=== PATIENT | female | born 1990 | race Caucasian/White ===

== ENCOUNTER 2018-09-21 02:58 | Emergency (ER) | payer SELFPAY ==
[~2018-09-21] VITALS: Ht 175.3 cm; Wt 111.1 kg
--- NOTE | 2018-09-21 03:04 | NUR ---
PT BIBRA FROM HOME C/P "HEART PALPITATIONS" TWICE IN THE LAST 2 HOURS THAT LASTED APPROX. 2 MIN EACH. PT DENIES CP/SOB AT THIS TIME. PT ON MONITOR IN BED 5. WILL CONTINUE TO MONITOR.
--- NOTE | 2018-09-21 03:05 | NUR ---
TECH AT BEDSIDE FOR EKG
[2018-09-21 03:06] VITALS: BP 134/94
== END 2018-09-21 03:55 | disposition home or self-care (01) ==
LOC: ER 03:00
DX: R00.2 Palpitations (principal); I10 Essential (primary) hypertension; Z60.2 Problems related to living alone
CPT/HCPCS: A4606; Z7610

== ENCOUNTER 2019-06-03 00:05 | Emergency (ER) | payer SELFPAY ==
[~2019-06-03] VITALS: Ht 172.7 cm; Wt 113.9 kg
[2019-06-03 00:12] VITALS: BP 143/74
--- NOTE | 2019-06-03 02:22 | NUR ---
CALLED FOR PT IN WAITING ROOM. NO RESPONSE
--- NOTE | 2019-06-03 02:55 | NUR ---
CALLED FOR PT IN WAITING ROOM. NO RESPONSE
--- NOTE | 2019-06-03 03:05 | NUR ---
CALLED FOR PT IN WAITING ROOM. NO RESPONSE
== END 2019-06-03 03:07 | disposition left against medical advice (07) ==
LOC: ER 00:07
DX: R07.89 Other chest pain (principal); I10 Essential (primary) hypertension; Z60.2 Problems related to living alone; Z53.21 Procedure and treatment not carried out due to patient leaving prior to being seen by health care provider

== ENCOUNTER 2019-06-09 11:56 | Emergency (ER) | payer SELFPAY ==
[~2019-06-09] VITALS: Ht 172.7 cm; Wt 113.4 kg
[2019-06-09 12:25] LABS: BASOPHILS # (AUTO) 0.1 /CMM (0.0-0.2); BASOPHILS % (AUTO) 0.9 % (0.0-2.0); EOSINOPHILS % (AUTO) 2.4 % (0.0-6.0); HEMATOCRIT 42 % (33-45); HEMOGLOBIN 14.2 g/dL (11.5-14.8); LYMPHOCYTES # (AUTO) 2.5 /CMM (0.8-4.8); MEAN CORPUSCULAR HGB CONC 34 g/dl (31.0-36.0); MEAN CORPUSCULAR VOLUME 81 fL (82-100); MONOCYTES # (AUTO) 0.2 /CMM (0.1-1.30); MONOCYTES % (AUTO) 2.6 % (2.0-12.0); NEUTROPHILS # (AUTO) 4.4 /CMM (1.8-8.9); NEUTROPHILS % (AUTO) 60.1 % (43.0-81.0); PLATELET COUNT (AUTO) 243 /CMM (150-450); RED BLOOD CELL COUNT(AUTO) 5.12 MIL/uL (4.0-5.2); WHITE BLOOD COUNT (AUTO) 7.4 K/uL (4.3-11.0)
[2019-06-09 12:31] LABS: CALCIUM, SERUM 9.5 mg/dL (8.5-10.1); CARBON DIOXIDE 25 mmol/L (21-32); CHLORIDE 105 mmol/L (98-107); CREATININE 0.6 mg/dL (0.6-1.3); GLUCOSE 128 mg/dL (74-106); POTASSIUM 3.7 mmol/L (3.5-5.1); SODIUM SERUM 141 mmol/L (136-145); UREA NITROGEN, BLOOD 8 mg/dL (7-18)
--- NOTE | 2019-06-09 14:14 | NUR ---
Patient discharged to home in stable condition. Written and verbal after care instructions given. Patient verbalizes understanding of instruction.
[2019-06-09 14:15] VITALS: BP 139/75
== END 2019-06-09 14:16 | disposition home or self-care (01) ==
LOC: ER 11:58
DX: R07.89 Other chest pain (principal); I10 Essential (primary) hypertension; Z60.2 Problems related to living alone
CPT/HCPCS: 36415; 71045-TC; 80048-TC; 84484-TC; 85025-TC

== ENCOUNTER 2019-08-23 18:49 | Emergency (ER) | payer SELFPAY ==
[~2019-08-23] VITALS: Ht 172.7 cm; Wt 102.1 kg
--- NOTE | 2019-08-23 19:09 | NUR ---
Pt VI RA 89 from Home "Palpitation/dizzy/light headedness on/off since last night was seen in [facility] cleared but symptoms persist. " Pt aaox4, vss, breathing even and unlabored on room air w/ nad. Pt connected to the monitor.
[2019-08-23 19:39] LABS: BASOPHILS # (AUTO) 0.1 /CMM (0.0-0.2); BASOPHILS % (AUTO) 0.6 % (0.0-2.0); EOSINOPHILS % (AUTO) 1.3 % (0.0-6.0); HEMATOCRIT 45 % (33-45); LYMPHOCYTES # (AUTO) 2.4 /CMM (0.8-4.8); LYMPHOCYTES % (AUTO) 27.3 % (20.0-44.0); MEAN CORPUSCULAR HGB CONC 33 g/dl (31.0-36.0); MEAN CORPUSCULAR VOLUME 83 fL (82-100); MONOCYTES # (AUTO) 0.5 /CMM (0.1-1.30); MONOCYTES % (AUTO) 5.6 % (2.0-12.0); NEUTROPHILS # (AUTO) 5.8 /CMM (1.8-8.9); NEUTROPHILS % (AUTO) 65.2 % (43.0-81.0); PLATELET COUNT (AUTO) 256 /CMM (150-450); RED BLOOD CELL COUNT(AUTO) 5.42 MIL/uL (4.0-5.2); WHITE BLOOD COUNT (AUTO) 8.9 K/uL (4.3-11.0)
[2019-08-23 19:43] LABS: CARBON DIOXIDE 23 mmol/L (21-32); CHLORIDE 106 mmol/L (98-107); CREATININE 0.6 mg/dL (0.6-1.3); GLUCOSE 116 mg/dL (74-106); POTASSIUM 3.5 mmol/L (3.5-5.1); SODIUM SERUM 142 mmol/L (136-145); UREA NITROGEN, BLOOD 10 mg/dL (7-18)
--- NOTE | 2019-08-23 20:35 | NUR ---
PT AMBULATED TO THE BATHROOM WITH A SLOW STEADY GAIT.
[2019-08-23 22:17] VITALS: BP 123/76
== END 2019-08-23 21:43 | disposition home or self-care (01) ==
LOC: ER 18:50
DX: F41.9 Anxiety disorder, unspecified (principal); R00.2 Palpitations; I10 Essential (primary) hypertension; K21.9 Gastro-esophageal reflux disease without esophagitis; Z90.89 Acquired absence of other organs; Z60.2 Problems related to living alone
CPT/HCPCS: 36415; 80048-TC; 84484-TC; 85025-TC

== ENCOUNTER 2019-09-21 15:34 | Emergency (ER) | payer BC ==
[~2019-09-21] VITALS: Ht 175.3 cm; Wt 112.9 kg
[2019-09-21 15:41] VITALS: BP 147/89
--- NOTE | 2019-09-21 16:34 | NUR ---
Patient discharged to home in stable condition. Written and verbal after care instructions given. Patient verbalizes understanding of instruction.
== END 2019-09-21 16:35 | disposition home or self-care (01) ==
LOC: ER 15:36
DX: F41.9 Anxiety disorder, unspecified (principal); I10 Essential (primary) hypertension; K21.9 Gastro-esophageal reflux disease without esophagitis; Z90.89 Acquired absence of other organs; Z60.2 Problems related to living alone

== ENCOUNTER 2019-10-14 17:58 | Emergency (ER) | payer BC ==
[~2019-10-14] VITALS: Ht 172.7 cm; Wt 111.1 kg
[2019-10-14 18:24] VITALS: BP 143/81
[2019-10-14] MEDS ORDERED: LET SOLN TOPICAL 8 ML UDC TP ONE ×2 (18:57→19:00)
--- NOTE | 2019-10-14 21:16 | NUR ---
PT REC'D BANDAGES TO ELBOW AND THUMB.
== END 2019-10-14 21:17 | disposition home or self-care (01) ==
LOC: ER 17:59
DX: S60.351A Superficial foreign body of right thumb, initial encounter (principal); S50.352A Superficial foreign body of left elbow, initial encounter; I10 Essential (primary) hypertension; F41.9 Anxiety disorder, unspecified; K21.9 Gastro-esophageal reflux disease without esophagitis; Z60.2 Problems related to living alone; Z90.89 Acquired absence of other organs; W45.8XXA Other foreign body or object entering through skin, initial encounter; Y93.89 Activity, other specified; Y92.89 Other specified places as the place of occurrence of the external cause; Y99.8 Other external cause status

== ENCOUNTER 2019-10-24 09:10 | Emergency (ER) | payer BC ==
[~2019-10-24] VITALS: Ht 165.1 cm; Wt 99.8 kg
[2019-10-24] MEDS: IV NS 0.9% 1,000 ML BAG IV ONE (09:30)
[2019-10-24] MEDS: ONDANSETRON HCL/PF 4 MG/2 ML VIAL IVP ONE (09:30)
[2019-10-24] MEDS ORDERED: KETOROLAC TROMETHAMINE 15 MG/ML VIAL ONE (09:38)
[2019-10-24] MEDS ORDERED: MORPHINE SULFATE INJ 4 MG/ML DISP.SYRIN ONE (09:38)
[2019-10-24] MEDS ORDERED: ONDANSETRON HCL/PF 4 MG/2 ML VIAL ONE (09:38)
[2019-10-24 09:46] LABS: BASOPHILS % (AUTO) 0.4 % (0.0-2.0); EOSINOPHILS % (AUTO) 1.2 % (0.0-6.0); HEMATOCRIT 42 % (33-45); HEMOGLOBIN 14.3 g/dL (11.5-14.8); LYMPHOCYTES # (AUTO) 2.1 /CMM (0.8-4.8); LYMPHOCYTES % (AUTO) 23.8 % (20.0-44.0); MEAN CORPUSCULAR HGB CONC 34 g/dl (31.0-36.0); MEAN CORPUSCULAR VOLUME 82 fL (82-100); MONOCYTES # (AUTO) 0.5 /CMM (0.1-1.30); MONOCYTES % (AUTO) 5.1 % (2.0-12.0); NEUTROPHILS # (AUTO) 6.3 /CMM (1.8-8.9); NEUTROPHILS % (AUTO) 69.5 % (43.0-81.0); PLATELET COUNT (AUTO) 234 /CMM (150-450); RED BLOOD CELL COUNT(AUTO) 5.16 MIL/uL (4.0-5.2)
[2019-10-24 09:47] LABS: APPEARANCE,URINE CLEAR (CLEAR); BILIRUBIN,URINE NEGATIVE (NEGATIVE); BLOOD, URINE SMALL Ery/uL (NEGATIVE); COLOR,URINE YELLOW (YELLOW); KETONES,URINE NEGATIVE (NEGATIVE); LEUKOCYTE ESTERASE ,URINE NEGATIVE (NEGATIVE); NITRITE, URINE NEGATIVE (NEGATIVE); PROTEIN,URINE NEGATIVE (NEGATIVE); UGLUCOSE NEGATIVE (NEGATIVE); UROBILINOGEN,URINE 0.2 EU/dL (0.2)
[2019-10-24 09:57] LABS: CALCIUM, SERUM 9.1 mg/dL (8.5-10.1); CREATININE 0.7 mg/dL (0.6-1.3); POTASSIUM 3.7 mmol/L (3.5-5.1)
[2019-10-24] MEDS ORDERED: LORAZEPAM INJ 2 MG/ML VIAL ONE (09:58)
[2019-10-24] MEDS: MORPHINE SULFATE INJ 2 MG/ML DISP.SYRIN IV ONE (10:00)
[2019-10-24 10:03] LABS: ALBUMIN 3.3 g/dL (3.4-5.0); BILIRUBIN,DIRECT 0.1 mg/dL (0.0-0.2); BILIRUBIN,TOTAL 0.5 mg/dL (0.2-1.0); TOTAL PROTEIN, SERUM 7.2 g/dL (6.4-8.2)
[2019-10-24] MEDS: LORAZEPAM INJ 2 MG/ML VIAL IV ONE (10:17)
[2019-10-24] MEDS: KETOROLAC TROMETHAMINE INJ 30 MG/ML VIAL IV ONE (10:17)
--- NOTE | 2019-10-24 10:19 | NUR ---
patient came in to the er c/o left flank pain with dysuria since this morning. On rooma ir, breathing evenly and unlabored, kept comfortable, will continue to monitor accordingly.
[2019-10-24 10:44] VITALS: BP 128/91
--- NOTE | 2019-10-24 10:45 | NUR ---
Patient discharged to home in stable condition. Written and verbal after care instructions given. Patient verbalizes understanding of instruction.IV removed. Catheter intact and site benign. Pressure and 4x4 applied to site. No bleeding noted.
== END 2019-10-24 10:45 | disposition home or self-care (01) ==
LOC: ER 09:15
DX: R10.9 Unspecified abdominal pain (principal); R30.0 Dysuria; R11.0 Nausea; I10 Essential (primary) hypertension; K21.9 Gastro-esophageal reflux disease without esophagitis; F41.9 Anxiety disorder, unspecified; Z90.89 Acquired absence of other organs; Z60.2 Problems related to living alone
CPT/HCPCS: 36415; 80048; 80076; 81001; 83690; 84703; 85025; 87086; 96374; 99283; J2405; J7030; 81000-TC; J1885; J2060; J2270

== ENCOUNTER 2019-11-05 09:41 | Emergency (ER) | payer BC ==
[~2019-11-05] VITALS: Ht 172.7 cm; Wt 132.9 kg
--- NOTE | 2019-11-05 09:41 | NUR ---
PT BIB RA 41 FROM HER CAR,C/O LEFT SIDED FLANK PAIN, PT IS AAOX4, NOT IN RESPIRATORY DISTRESS, V/S STABLE, KEPT RESTED AND COMFORTABLE, WILL CONTINUE TO MONITOR.
--- NOTE | 2019-11-05 09:55 | NUR ---
PT SEEN AND EXAMINED BY .
--- NOTE | 2019-11-05 10:00 | NUR ---
URINE SPECIMEN COLLECTED AND SENT TO LAB.
--- NOTE | 2019-11-05 10:05 | NUR ---
ER PHLEB AT BEDSIDE FOR BLOOD DRAW.
[2019-11-05 10:17] LABS: APPEARANCE,URINE Clear (CLEAR); BASOPHILS % (AUTO) 0.5 % (0.0-2.0); BILIRUBIN,URINE Negative (NEGATIVE); BLOOD, URINE Negative Ery/uL (NEGATIVE); COLOR,URINE Yellow (YELLOW); EOSINOPHILS % (AUTO) 1.1 % (0.0-6.0); HEMATOCRIT 41 % (33-45); HEMOGLOBIN 13.8 g/dL (11.5-14.8); KETONES,URINE Negative (NEGATIVE); LEUKOCYTE ESTERASE ,URINE Negative (NEGATIVE); LYMPHOCYTES # (AUTO) 2.4 /CMM (0.8-4.8); LYMPHOCYTES % (AUTO) 27.9 % (20.0-44.0); MEAN CORPUSCULAR HGB CONC 34 g/dl (31.0-36.0); MEAN CORPUSCULAR VOLUME 81 fL (82-100); MONOCYTES # (AUTO) 0.4 /CMM (0.1-1.30); MONOCYTES % (AUTO) 4.2 % (2.0-12.0); NEUTROPHILS # (AUTO) 5.8 /CMM (1.8-8.9); NEUTROPHILS % (AUTO) 66.3 % (43.0-81.0); NITRITE, URINE Negative (NEGATIVE); PH,URINE 5.5 (5.0-8.0); PLATELET COUNT (AUTO) 307 /CMM (150-450); PROTEIN,URINE Negative (NEGATIVE); RED BLOOD CELL COUNT(AUTO) 4.99 MIL/uL (4.0-5.2); UGLUCOSE Negative (NEGATIVE); UROBILINOGEN,URINE 0.2 EU/dL (0.2); WHITE BLOOD COUNT (AUTO) 8.7 K/uL (4.3-11.0)
[2019-11-05 10:31] LABS: ALBUMIN 3.4 g/dL (3.4-5.0); BILIRUBIN,DIRECT 0.1 mg/dL (0.0-0.2); BILIRUBIN,TOTAL 0.3 mg/dL (0.2-1.0); CALCIUM, SERUM 9.4 mg/dL (8.5-10.1); CREATININE 0.7 mg/dL (0.6-1.3); POTASSIUM 3.6 mmol/L (3.5-5.1); TOTAL PROTEIN, SERUM 7.8 g/dL (6.4-8.2)
--- NOTE | 2019-11-05 10:44 | NUR ---
PT IS WHEELED TO CT SCAN.
[2019-11-05 12:12] VITALS: BP 129/66
--- NOTE | 2019-11-05 12:12 | NUR ---
Patient discharged to home in stable condition. Written and verbal after care instructions given. Patient verbalizes understanding of instruction.
== END 2019-11-05 12:13 | disposition home or self-care (01) ==
LOC: ER 09:42
DX: R10.32 Left lower quadrant pain (principal); R10.12 Left upper quadrant pain; I10 Essential (primary) hypertension; K21.9 Gastro-esophageal reflux disease without esophagitis; F41.9 Anxiety disorder, unspecified; Z90.89 Acquired absence of other organs; Z60.2 Problems related to living alone
CPT/HCPCS: 36415; 80048-TC; 80076-TC; 81000-TC; 83690-TC; 84702-TC; 84703-TC; 85025-TC

== ENCOUNTER 2020-01-25 01:12 | Emergency (ER) | payer BC ==
[~2020-01-25] VITALS: Ht 172.7 cm; Wt 108.9 kg
--- NOTE | 2020-01-25 01:23 | NUR ---
BIBRA 89 FOR C/O LIGHTHEADEDNESS AND PALPITATION
--- NOTE | 2020-01-25 01:24 | NUR ---
AT THE BED SIDE
[2020-01-25] MEDS ORDERED: LORAZEPAM 1 MG TABLET ONE (01:28)
[2020-01-25] MEDS ORDERED: LORAZEPAM 1 MG TABLET PO ONE (01:30)
--- NOTE | 2020-01-25 02:01 | NUR ---
Patient discharged to home in stable condition. Rx and Written and verbal after care instructions given. Patient verbalizes understanding of instruction.
--- NOTE | 2020-01-25 02:03 | NUR ---
P'S FAMILY WILL PROVIDE RIDE TO THE PT
[2020-01-25 02:22] VITALS: BP 129/79
== END 2020-01-25 02:01 | disposition home or self-care (01) ==
LOC: ER 01:13
DX: F41.9 Anxiety disorder, unspecified (principal); I10 Essential (primary) hypertension; K21.9 Gastro-esophageal reflux disease without esophagitis; Z90.89 Acquired absence of other organs; Z60.2 Problems related to living alone

== ENCOUNTER 2020-02-29 03:01 | Emergency (ER) | payer BC ==
[~2020-02-29] VITALS: Ht 172.7 cm; Wt 104.3 kg
[2020-02-29 03:54] VITALS: BP 115/88
--- NOTE | 2020-02-29 03:58 | NUR ---
PATIENT CAME TO ER BED 4 C/O RIGHT 3RD DIGIT SWELLING. PATIENT STATES THAT SHE WOKE UP AT AROUND 0200 BECAUSE SHE FELT PAIN ON HER RIGHT MIDDLE FINGER. PATIENT STAES THAT IT WAS RED AND SWOLLEN. AAOX4. NO SOB. BREATHING EVENLY AND UNLABORED ON ROOM AIR.
--- NOTE | 2020-02-29 05:00 | NUR ---
Patient eloped from facility. ER MD notified.
== END 2020-02-29 06:32 | disposition left against medical advice (07) ==
LOC: ER 03:03
DX: Z53.21 Procedure and treatment not carried out due to patient leaving prior to being seen by health care provider (principal); M79.644 Pain in right finger(s); I10 Essential (primary) hypertension; F41.9 Anxiety disorder, unspecified; K21.9 Gastro-esophageal reflux disease without esophagitis; Z90.89 Acquired absence of other organs

== ENCOUNTER 2020-03-11 09:49 | Emergency (ER) | payer BC ==
[~2020-03-11] VITALS: Ht 172.7 cm; Wt 104.3 kg
[2020-03-11] MEDS ORDERED: IV NS 0.9% 1,000 ML BAG IV ONE (10:00)
[2020-03-11] MEDS ORDERED: LORAZEPAM 1 MG TABLET PO ONE (10:00)
--- NOTE | 2020-03-11 10:00 | NUR ---
JOSE J 80 FRM [facility] C/O "FEELING ANXIOUS, PALPITATIONS & LIGHTHEADED ALSO C/O DIARRHEA x "COUPLE OF DAYS". PATIENT A/OX4, BREATHING EVEN AND UNLABORED, NO SOB NOTED, NEEDS ATTENDED, CHANGED INTO A GOWN, ATTACHED TO THE RETURN TO SERVICE INSPECTOR. DR. MCCONNELL AT BEDSIDE FOR EVAL.
[2020-03-11] MEDS ORDERED: LORAZEPAM 1 MG TABLET ONE (10:12)
[2020-03-11 10:14] LABS: BASOPHILS # (AUTO) 0.1 /CMM (0.0-0.2); BASOPHILS % (AUTO) 0.5 % (0.0-2.0); EOSINOPHILS % (AUTO) 0.6 % (0.0-6.0); HEMATOCRIT 45 % (33-45); HEMOGLOBIN 15.2 g/dL (11.5-14.8); LYMPHOCYTES # (AUTO) 2.2 /CMM (0.8-4.8); LYMPHOCYTES % (AUTO) 20.9 % (20.0-44.0); MEAN CORPUSCULAR HGB CONC 34 g/dl (31.0-36.0); MEAN CORPUSCULAR VOLUME 82 fL (82-100); MONOCYTES # (AUTO) 0.4 /CMM (0.1-1.30); MONOCYTES % (AUTO) 4.1 % (2.0-12.0); NEUTROPHILS # (AUTO) 7.9 /CMM (1.8-8.9); NEUTROPHILS % (AUTO) 73.9 % (43.0-81.0); PLATELET COUNT (AUTO) 289 /CMM (150-450); RED BLOOD CELL COUNT(AUTO) 5.57 MIL/uL (4.0-5.2); WHITE BLOOD COUNT (AUTO) 10.8 K/uL (4.3-11.0)
[2020-03-11 10:26] LABS: CALCIUM, SERUM 9.4 mg/dL (8.5-10.1); CREATININE 0.8 mg/dL (0.6-1.3); POTASSIUM 3.5 mmol/L (3.5-5.1)
[2020-03-11 12:29] VITALS: BP 135/77
== END 2020-03-11 12:29 | disposition home or self-care (01) ==
LOC: ER 09:51
DX: F41.9 Anxiety disorder, unspecified (principal); R42 Dizziness and giddiness; I10 Essential (primary) hypertension; K21.9 Gastro-esophageal reflux disease without esophagitis; Z90.89 Acquired absence of other organs; Z60.2 Problems related to living alone
CPT/HCPCS: 36415; 80048; 84443; 84702; 85025; 93005 ×3; 96360; 99284; J7030

== ENCOUNTER 2020-04-25 16:50 | Emergency (ER) | payer SELFPAY ==
[~2020-04-25] VITALS: Ht 172.7 cm; Wt 104.3 kg
--- NOTE | 2020-04-25 17:15 | NUR ---
JOSE J FROM HOME TO ER BED 12. AAOX4. NOT IN RESP DISTRESS. BREATHING EVEN AND UNLABORED. CAME IN FOR PALPITATION. SHE REPORT WAKING UP HAVING PALPITATION W/ FEELING OF COLD, HOT AND SWEATY. PT IS NOTED ANXIOUS AND DURING ASSESSMENT, PT VERBALIZED THAT SHE IS HAVING STERNAL PAIN, NON RADIATING, DULL 2/10. PT IS ON MONITOR. NOTED SINUS RHYTM. AWAITING MD FOR EVAL.
[2020-04-25 17:54] LABS: BASOPHILS % (AUTO) 0.4 % (0.0-2.0); EOSINOPHILS % (AUTO) 0.7 % (0.0-6.0); HEMATOCRIT 41 % (33-45); HEMOGLOBIN 13.7 g/dL (11.5-14.8); LYMPHOCYTES # (AUTO) 1.9 /CMM (0.8-4.8); LYMPHOCYTES % (AUTO) 19.5 % (20.0-44.0); MEAN CORPUSCULAR HGB CONC 34 g/dl (31.0-36.0); MEAN CORPUSCULAR VOLUME 80 fL (82-100); MONOCYTES # (AUTO) 0.5 /CMM (0.1-1.30); MONOCYTES % (AUTO) 4.7 % (2.0-12.0); NEUTROPHILS # (AUTO) 7.3 /CMM (1.8-8.9); NEUTROPHILS % (AUTO) 74.7 % (43.0-81.0); PLATELET COUNT (AUTO) 278 /CMM (150-450); RED BLOOD CELL COUNT(AUTO) 5.09 MIL/uL (4.0-5.2); WHITE BLOOD COUNT (AUTO) 9.7 K/uL (4.3-11.0)
[2020-04-25 18:15] LABS: CARBON DIOXIDE 25 mmol/L (21-32); CHLORIDE 105 mmol/L (98-107); CREATININE 0.7 mg/dL (0.6-1.3); GLUCOSE 138 mg/dL (74-106); POTASSIUM 3.5 mmol/L (3.5-5.1); SODIUM SERUM 141 mmol/L (136-145); UREA NITROGEN, BLOOD 12 mg/dL (7-18)
--- NOTE | 2020-04-25 18:46 | NUR ---
Patient discharged to home in stable condition. Written and verbal after care instructions given. Patient verbalizes understanding of instruction. Pt ambulatory with a steady gait
[2020-04-25 18:47] VITALS: BP 151/74
== END 2020-04-25 18:47 | disposition home or self-care (01) ==
LOC: ER 16:57
DX: R00.2 Palpitations (principal); F41.9 Anxiety disorder, unspecified; I20.1 Angina pectoris with documented spasm; I10 Essential (primary) hypertension; R42 Dizziness and giddiness; R00.0 Tachycardia, unspecified; K21.9 Gastro-esophageal reflux disease without esophagitis; Z90.89 Acquired absence of other organs; Z60.2 Problems related to living alone
CPT/HCPCS: 36415; 80048-TC; 84484-TC; 85025-TC

== ENCOUNTER 2020-04-30 22:50 | Emergency (ER) | payer SELFPAY ==
[~2020-04-30] VITALS: Ht 172.7 cm; Wt 99.8 kg
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
--- NOTE | 2020-04-30 22:57 | NUR ---
SEEN AND EXAMINED BY MD SEGURA
[2020-04-30] MEDS ORDERED: IV NS 0.9% 1,000 ML BAG IV ONE (23:00)
--- NOTE | 2020-04-30 23:08 | NUR ---
BLOOD COLLECTED AND SENT TO THE LAB WITH EDGE INKER UPPERS
--- NOTE | 2020-04-30 23:09 | NUR ---
TECH AT BEDSIDE FOR EKG
[2020-04-30 23:14] LABS: BASOPHILS % (AUTO) 0.5 % (0.0-2.0); HEMATOCRIT 41 % (33-45); HEMOGLOBIN 13.6 g/dL (11.5-14.8); LYMPHOCYTES % (AUTO) 36.3 % (20.0-44.0); MEAN CORPUSCULAR HGB CONC 33 g/dl (31.0-36.0); MEAN CORPUSCULAR VOLUME 81 fL (82-100); MONOCYTES # (AUTO) 0.5 /CMM (0.1-1.30); MONOCYTES % (AUTO) 5.5 % (2.0-12.0); NEUTROPHILS # (AUTO) 4.7 /CMM (1.8-8.9); NEUTROPHILS % (AUTO) 56.7 % (43.0-81.0); PLATELET COUNT (AUTO) 276 /CMM (150-450); RED BLOOD CELL COUNT(AUTO) 5.03 MIL/uL (4.0-5.2); WHITE BLOOD COUNT (AUTO) 8.3 K/uL (4.3-11.0)
[2020-04-30 23:34] LABS: ALANINE AMINOTRANSFERASE 23 U/L (12-78); ALBUMIN 3.6 g/dL (3.4-5.0); ALKALINE PHOSPHATASE 89 U/L (46-116); ASPARTATE AMINOTRANSFERASE 15 U/L (15-37); BILIRUBIN,DIRECT 0.1 mg/dL (0.0-0.2); BILIRUBIN,TOTAL 0.3 mg/dL (0.2-1.0); CALCIUM, SERUM 9.6 mg/dL (8.5-10.1); CARBON DIOXIDE 24 mmol/L (21-32); CHLORIDE 107 mmol/L (98-107); CREATININE 0.8 mg/dL (0.6-1.3); GLUCOSE 120 mg/dL (74-106); POTASSIUM 3.7 mmol/L (3.5-5.1); SODIUM SERUM 141 mmol/L (136-145); TOTAL PROTEIN, SERUM 7.5 g/dL (6.4-8.2); UREA NITROGEN, BLOOD 7 mg/dL (7-18)
--- NOTE | 2020-04-30 23:37 | NUR ---
US AT BEDSIDE.
[2020-04-30 23:38] LABS: ALCOHOL, BLOOD < 3 mg/dL (0-0)
--- NOTE | 2020-05-01 00:19 | NUR ---
PATIENT IS TAKEN TO CT
--- NOTE | 2020-05-01 00:32 | NUR ---
pt returned from radiology via [facility]
--- NOTE | 2020-05-01 00:34 | NUR ---
PATIENT AMBULATED TO THE RESTROOM WITH STEADY GAIT.
[2020-05-01 02:15] VITALS: BP 129/76
--- NOTE | 2020-05-01 02:15 | NUR ---
Patient discharged to home in stable condition. Written and verbal after care instructions given. Patient verbalizes understanding of instruction.
--- NOTE | 2020-05-01 02:15 | NUR ---
IV removed. Catheter intact and site benign. Pressure and 4x4 applied to site. No bleeding noted.
== END 2020-05-01 02:16 | disposition home or self-care (01) ==
LOC: ER 22:51
DX: R42 Dizziness and giddiness (principal); R51 Headache; F41.9 Anxiety disorder, unspecified; I10 Essential (primary) hypertension; K21.9 Gastro-esophageal reflux disease without esophagitis; Z90.89 Acquired absence of other organs; Z88.0 Allergy status to penicillin; Z60.2 Problems related to living alone
CPT/HCPCS: 36415 ×2; 70450; 71045; 80048; 80076; 80305; 80307; 83605 ×2; 84484; 84702; 85025; 85730; 93005 ×2; 93880; 96360; 99285; J7030; G0480

== ENCOUNTER 2020-05-21 22:48 | Emergency (ER) | payer SELFPAY ==
[~2020-05-21] VITALS: Ht 172.7 cm; Wt 99.8 kg
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
[2020-05-21] MEDS ORDERED: LORAZEPAM INJ 2 MG/ML VIAL IV ONE (23:00)
[2020-05-21] MEDS ORDERED: LORAZEPAM INJ 2 MG/ML VIAL ONE (23:11)
[2020-05-21] MEDS ORDERED: LORAZEPAM 1 MG TABLET ONE (23:19)
[2020-05-21 23:30] LABS: BASOPHILS % (AUTO) 0.4 % (0.0-2.0); EOSINOPHILS % (AUTO) 1.1 % (0.0-6.0); HEMATOCRIT 44 % (33-45); HEMOGLOBIN 14.6 g/dL (11.5-14.8); LYMPHOCYTES # (AUTO) 3.4 /CMM (0.8-4.8); MEAN CORPUSCULAR HGB CONC 33 g/dl (31.0-36.0); MEAN CORPUSCULAR VOLUME 81 fL (82-100); MONOCYTES # (AUTO) 0.4 /CMM (0.1-1.30); MONOCYTES % (AUTO) 5.2 % (2.0-12.0); NEUTROPHILS # (AUTO) 4.5 /CMM (1.8-8.9); NEUTROPHILS % (AUTO) 53.3 % (43.0-81.0); PLATELET COUNT (AUTO) 259 /CMM (150-450); RED BLOOD CELL COUNT(AUTO) 5.43 MIL/uL (4.0-5.2); WHITE BLOOD COUNT (AUTO) 8.5 K/uL (4.3-11.0)
[2020-05-21] MEDS ORDERED: LORAZEPAM 1 MG TABLET PO ONE (23:30)
[2020-05-21 23:40] LABS: CALCIUM, SERUM 9.4 mg/dL (8.5-10.1); CARBON DIOXIDE 21 mmol/L (21-32); CHLORIDE 105 mmol/L (98-107); CREATININE 0.8 mg/dL (0.6-1.3); GLUCOSE 126 mg/dL (74-106); POTASSIUM 3.1 mmol/L (3.5-5.1); SODIUM SERUM 139 mmol/L (136-145); UREA NITROGEN, BLOOD 10 mg/dL (7-18)
--- NOTE | 2020-05-22 02:46 | NUR ---
Patient discharged to home in stable condition. Written and verbal after care instructions given. Patient verbalizes understanding of instruction.
[2020-05-22 02:47] VITALS: BP 141/68
== END 2020-05-22 02:47 | disposition home or self-care (01) ==
LOC: ER 22:49
DX: R07.89 Other chest pain (principal); F41.9 Anxiety disorder, unspecified; I10 Essential (primary) hypertension; K21.9 Gastro-esophageal reflux disease without esophagitis; R00.0 Tachycardia, unspecified; I25.2 Old myocardial infarction; Z90.89 Acquired absence of other organs; Z88.0 Allergy status to penicillin
CPT/HCPCS: 36415; 71045-TC; 80048-TC; 84484-TC; 85025-TC; J2060

== ENCOUNTER 2020-06-08 17:19 | Emergency (ER) | payer SELFPAY ==
[~2020-06-08] VITALS: Ht 172.7 cm; Wt 99.8 kg
--- NOTE | 2020-06-08 18:01 | NUR ---
DIZZY X1 HR, TACHYCARDIA X3 EPISODES WITHIN THE LAST HOUR BUT RESOLVED NOW. PT AAOX4, VSS. RR EVEN & UNLABORED. DENIES CP, SOB, N/V AT THIS TIME. PT SEEN & EVAL'D BY DR. MCCONNELL. PLACED ON DONOR FLOOR TECHNICIAN, SR. WILL CONT TO MONITOR.
[2020-06-08 18:02] LABS: BASOPHILS % (AUTO) 0.2 % (0.0-2.0); EOSINOPHILS % (AUTO) 0.8 % (0.0-6.0); HEMATOCRIT 44 % (33-45); HEMOGLOBIN 14.5 g/dL (11.5-14.8); LYMPHOCYTES # (AUTO) 1.9 /CMM (0.8-4.8); LYMPHOCYTES % (AUTO) 19.8 % (20.0-44.0); MEAN CORPUSCULAR HGB CONC 33 g/dl (31.0-36.0); MEAN CORPUSCULAR VOLUME 81 fL (82-100); MONOCYTES # (AUTO) 0.4 /CMM (0.1-1.30); MONOCYTES % (AUTO) 4.1 % (2.0-12.0); NEUTROPHILS # (AUTO) 7.1 /CMM (1.8-8.9); NEUTROPHILS % (AUTO) 75.1 % (43.0-81.0); PLATELET COUNT (AUTO) 271 /CMM (150-450); WHITE BLOOD COUNT (AUTO) 9.5 K/uL (4.3-11.0)
[2020-06-08 18:15] LABS: CARBON DIOXIDE 22 mmol/L (21-32); CHLORIDE 105 mmol/L (98-107); CREATININE 0.7 mg/dL (0.6-1.3); GLUCOSE 120 mg/dL (74-106); POTASSIUM 3.4 mmol/L (3.5-5.1); SODIUM SERUM 140 mmol/L (136-145); UREA NITROGEN, BLOOD 9 mg/dL (7-18)
[2020-06-08 18:21] LABS: ALANINE AMINOTRANSFERASE 21 U/L (12-78); ALBUMIN 3.9 g/dL (3.4-5.0); ALKALINE PHOSPHATASE 92 U/L (46-116); ASPARTATE AMINOTRANSFERASE 14 U/L (15-37); BILIRUBIN,DIRECT 0.1 mg/dL (0.0-0.2); BILIRUBIN,TOTAL 0.4 mg/dL (0.2-1.0); CALCIUM, SERUM 9.3 mg/dL (8.5-10.1); TOTAL PROTEIN, SERUM 7.7 g/dL (6.4-8.2)
[2020-06-08 19:24] VITALS: BP 146/89
== END 2020-06-08 19:24 | disposition home or self-care (01) ==
LOC: ER 17:20
DX: R00.2 Palpitations (principal); R42 Dizziness and giddiness; F41.9 Anxiety disorder, unspecified; I10 Essential (primary) hypertension; K21.9 Gastro-esophageal reflux disease without esophagitis; Z90.89 Acquired absence of other organs; Z88.0 Allergy status to penicillin
CPT/HCPCS: 36415; 80048-TC; 80076-TC; 84484-TC; 85025-TC

== ENCOUNTER 2020-06-21 04:42 | Emergency (ER) | payer SELFPAY ==
[~2020-06-21] VITALS: Ht 172.7 cm; Wt 99.8 kg
--- NOTE | 2020-06-21 04:44 | NUR ---
JOSE J 89 FROM HOME FOR C/O DIZZINESS. -CP, -H/A, -N/V. pt aaox4, -sob, nad noted, placed on monitor. pending er provider joshua
[2020-06-21] MEDS ORDERED: LORAZEPAM 1 MG TABLET PO ONE (05:30)
[2020-06-21] MEDS ORDERED: LORAZEPAM 1 MG TABLET ONE (05:45)
[2020-06-21 05:46] VITALS: BP 143/79
[2020-06-21 05:57] LABS: BASOPHILS % (AUTO) 0.3 % (0.0-2.0); EOSINOPHILS % (AUTO) 1.3 % (0.0-6.0); HEMATOCRIT 43 % (33-45); HEMOGLOBIN 14.5 g/dL (11.5-14.8); LYMPHOCYTES # (AUTO) 2.3 /CMM (0.8-4.8); LYMPHOCYTES % (AUTO) 25.7 % (20.0-44.0); MEAN CORPUSCULAR HGB CONC 34 g/dl (31.0-36.0); MEAN CORPUSCULAR VOLUME 80 fL (82-100); MONOCYTES # (AUTO) 0.4 /CMM (0.1-1.30); MONOCYTES % (AUTO) 4.7 % (2.0-12.0); PLATELET COUNT (AUTO) 282 /CMM (150-450); RED BLOOD CELL COUNT(AUTO) 5.36 MIL/uL (4.0-5.2); WHITE BLOOD COUNT (AUTO) 8.8 K/uL (4.3-11.0)
[2020-06-21 06:06] LABS: CARBON DIOXIDE 26 mmol/L (21-32); CHLORIDE 105 mmol/L (98-107); CREATININE 0.8 mg/dL (0.6-1.3); GLUCOSE 142 mg/dL (74-106); POTASSIUM 3.5 mmol/L (3.5-5.1); SODIUM SERUM 141 mmol/L (136-145); UREA NITROGEN, BLOOD 11 mg/dL (7-18)
--- NOTE | 2020-06-21 06:53 | NUR ---
Patient eloped from facility. ER MD notified. (Dr. June)
== END 2020-06-21 06:54 | disposition left against medical advice (07) ==
LOC: ER 04:43
DX: R42 Dizziness and giddiness (principal); I10 Essential (primary) hypertension; K21.9 Gastro-esophageal reflux disease without esophagitis; Z90.89 Acquired absence of other organs; Z88.0 Allergy status to penicillin
CPT/HCPCS: 36415; 71045-TC; 80048-TC; 84484-TC; 85025-TC

== ENCOUNTER → 2021-02-08 | Emergency (ER) | payer SELFPAY ==
[~2021-02-08] VITALS: Ht 175.3 cm; Wt 99.3 kg
--- NOTE | 2021-02-08 13:10 | NUR ---
DR MTZ AT BEDSIDE FOR EVAL.
--- NOTE | 2021-02-08 13:20 | NUR ---
VENDOR ANALYST AT BEDSIDE FOR BLOOD DRAW.
[2021-02-08 13:25] LABS: BASOPHILS % (AUTO) 0.2 % (0.0-2.0); EOSINOPHILS % (AUTO) 1.6 % (0.0-6.0); HEMATOCRIT 41 % (33-45); HEMOGLOBIN 13.8 g/dL (11.5-14.8); LYMPHOCYTES # (AUTO) 2.4 /CMM (0.8-4.8); LYMPHOCYTES % (AUTO) 27.9 % (20.0-44.0); MEAN CORPUSCULAR HGB CONC 34 g/dl (31.0-36.0); MEAN CORPUSCULAR VOLUME 79 fL (82-100); MONOCYTES # (AUTO) 0.5 /CMM (0.1-1.30); MONOCYTES % (AUTO) 5.6 % (2.0-12.0); NEUTROPHILS # (AUTO) 5.6 /CMM (1.8-8.9); NEUTROPHILS % (AUTO) 64.7 % (43.0-81.0); PLATELET COUNT (AUTO) 269 /CMM (150-450); RED BLOOD CELL COUNT(AUTO) 5.16 MIL/uL (4.0-5.2); WHITE BLOOD COUNT (AUTO) 8.7 K/uL (4.3-11.0)
[2021-02-08 13:31] LABS: CALCIUM, SERUM 9.3 mg/dL (8.5-10.1); CARBON DIOXIDE 24 mmol/L (21-32); CHLORIDE 106 mmol/L (98-107); CREATININE 0.7 mg/dL (0.6-1.3); GLUCOSE 127 mg/dL (74-106); POTASSIUM 4.5 mmol/L (3.5-5.1); SODIUM SERUM 138 mmol/L (136-145); UREA NITROGEN, BLOOD 10 mg/dL (7-18)
--- NOTE | 2021-02-08 13:32 | NUR ---
RADIOLOGY AT BEDSIDE FOR CHEST XRAY.
--- NOTE | 2021-02-08 14:37 | NUR ---
Patient discharged to home in stable condition. Written and verbal after care instructions given. Patient verbalizes understanding of instruction. Patient does not wish to proceed with medical care recommended by Dr. Torres. Patient given information related to possible complications, up to and including , which could occur as a result of leaving the hospital at this time. Patient verbalizes understanding of risks involved due to leaving against medical advice. Patient has signed AMA form.
[2021-02-08 14:38] VITALS: BP 122/59
== END | disposition home or self-care (01) ==
LOC: ER 12:56
DX: R07.89 Other chest pain (principal); I10 Essential (primary) hypertension; K21.9 Gastro-esophageal reflux disease without esophagitis; F41.9 Anxiety disorder, unspecified; Z90.89 Acquired absence of other organs; Z88.0 Allergy status to penicillin
CPT/HCPCS: 36415; 71045-TC; 80048-TC; 84484-TC; 85025-TC

== ENCOUNTER 2021-03-26 01:32 | Emergency (ER) | payer BC, OTHER ==
[~2021-03-26] VITALS: Ht 175.3 cm; Wt 99.3 kg
[2021-03-26 01:32] VITALS: BP 148/86
[2021-03-26 01:56] LABS: BILIRUBIN,URINE Negative (NEGATIVE); COLOR,URINE YELLOW (YELLOW); LEUKOCYTE ESTERASE ,URINE Negative (NEGATIVE); NITRITE, URINE Negative (NEGATIVE); PROTEIN,URINE Negative (NEGATIVE); UGLUCOSE Negative (NEGATIVE); UROBILINOGEN,URINE 0.2 EU/dL (0.2)
[2021-03-26] MEDS ORDERED: NITR100C6 PO (02:50)
== END 2021-03-26 03:00 | disposition home or self-care (01) ==
LOC: ER 01:34
DX: R53.81 Other malaise (principal); I10 Essential (primary) hypertension; K21.9 Gastro-esophageal reflux disease without esophagitis; F41.9 Anxiety disorder, unspecified; Z90.89 Acquired absence of other organs; Z88.0 Allergy status to penicillin
CPT/HCPCS: 87086-TC

== ENCOUNTER 2021-07-31 00:56 | Emergency (ER) | payer BC, OTHER ==
[~2021-07-31] VITALS: Ht 172.7 cm; Wt 99.8 kg
[~2021-07-31 00:56] MED LIST: NITR100C6 PO
--- NOTE | 2021-07-31 01:10 | NUR ---
BIBRA88 C/O DIZINESS [id number] ON AND OFF. LAST EPISODE OF DIZZINESS AT 1400. NO ASSOSCIATED C/P. SOB. N/V. PLACED ON MONITOR ALL V/S STABLE. WAS AT BEDSIDE FOR EVAL.
[2021-07-31 01:35] LABS: BILIRUBIN,URINE Negative (NEGATIVE); COLOR,URINE YELLOW (YELLOW); LEUKOCYTE ESTERASE ,URINE Negative (NEGATIVE); NITRITE, URINE Negative (NEGATIVE); PH,URINE 6.5 (5.0-8.0); PROTEIN,URINE Negative (NEGATIVE); UGLUCOSE Negative (NEGATIVE); UROBILINOGEN,URINE 0.2 EU/dL (0.2)
[2021-07-31] MEDS: IV NS 0.9% 1,000 ML BAG IV ONE (01:35)
[2021-07-31 01:39] LABS: BASOPHILS % (AUTO) 0.3 % (0.0-2.0); EOSINOPHILS % (AUTO) 1.9 % (0.0-6.0); HEMATOCRIT 40 % (33-45); HEMOGLOBIN 13.2 g/dL (11.5-14.8); LYMPHOCYTES # (AUTO) 2.9 K/uL (0.8-4.8); LYMPHOCYTES % (AUTO) 40.8 % (20.0-44.0); MEAN CORPUSCULAR HGB CONC 33 g/dl (31.0-36.0); MEAN CORPUSCULAR VOLUME 75 fL (82-100); MONOCYTES # (AUTO) 0.4 K/uL (0.1-1.30); MONOCYTES % (AUTO) 5.7 % (2.0-12.0); NEUTROPHILS # (AUTO) 3.6 K/uL (1.8-8.9); NEUTROPHILS % (AUTO) 51.3 % (43.0-81.0); PLATELET COUNT (AUTO) 254 K/uL (150-450); RED BLOOD CELL COUNT(AUTO) 5.29 MIL/uL (4.0-5.2); WHITE BLOOD COUNT (AUTO) 7.1 K/uL (4.3-11.0)
[2021-07-31 01:58] LABS: ALANINE AMINOTRANSFERASE 27 U/L (12-78); ALBUMIN 3.8 g/dL (3.4-5.0); ALKALINE PHOSPHATASE 122 U/L (46-116); ASPARTATE AMINOTRANSFERASE 14 U/L (15-37); BILIRUBIN,DIRECT 0.1 mg/dL (0.0-0.2); BILIRUBIN,TOTAL 0.3 mg/dL (0.2-1.0); CARBON DIOXIDE 26 mmol/L (21-32); CHLORIDE 104 mmol/L (98-107); CREATININE 0.9 mg/dL (0.6-1.3); GLUCOSE 114 mg/dL (74-106); POTASSIUM 3.5 mmol/L (3.5-5.1); SODIUM SERUM 140 mmol/L (136-145); UREA NITROGEN, BLOOD 11 mg/dL (7-18)
[2021-07-31 02:13] LABS: CALCIUM, SERUM 9.3 mg/dL (8.5-10.1)
--- NOTE | 2021-07-31 03:59 | NUR ---
Patient discharged to home in stable condition. Written and verbal after care instructions given. Patient verbalizes understanding of instruction.
[2021-07-31 04:00] VITALS: BP 135/76
== END 2021-07-31 04:00 | disposition home or self-care (01) ==
LOC: ER 00:58
DX: R42 Dizziness and giddiness (principal); R68.83 Chills (without fever); I10 Essential (primary) hypertension; K21.9 Gastro-esophageal reflux disease without esophagitis; F41.9 Anxiety disorder, unspecified; Z90.89 Acquired absence of other organs; Z88.0 Allergy status to penicillin
CPT/HCPCS: 36415; 71045; 80048; 80076; 81003; 83605; 83735; 84484; 84703; 85025; 87040 ×2; 93005; 96360; 99285; J7030

== ENCOUNTER 2021-08-06 02:52 | Emergency (ER) | payer OTHER ==
[~2021-08-06] VITALS: Ht 172.7 cm; Wt 95.3 kg
--- NOTE | 2021-08-06 03:15 | NUR ---
PATIENT BIBRA 89 C/O EPIGASTRIC PAIN. PATIENT STARTED AT 2200HRS LAST NIGHT. PATIENT STATED + N/V. PATIENT IS A/O X 4, RR EVEN AND UNLABORED, NO SOB NOTED. PATIENT CONNECTED TO CARDAIC MONITOR AND POX.
--- NOTE | 2021-08-06 03:31 | NUR ---
LAB AT BEDSIDE
--- NOTE | 2021-08-06 03:34 | NUR ---
PT NOT ABLE TO PROVIDE URINE AT THIS TIME
[2021-08-06 03:40] LABS: BASOPHILS % (AUTO) 0.3 % (0.0-2.0); HEMATOCRIT 41 % (33-45); HEMOGLOBIN 13.5 g/dL (11.5-14.8); LYMPHOCYTES # (AUTO) 2.3 K/uL (0.8-4.8); LYMPHOCYTES % (AUTO) 34.4 % (20.0-44.0); MEAN CORPUSCULAR HGB CONC 33 g/dl (31.0-36.0); MEAN CORPUSCULAR VOLUME 75 fL (82-100); MONOCYTES # (AUTO) 0.4 K/uL (0.1-1.30); MONOCYTES % (AUTO) 6.3 % (2.0-12.0); NEUTROPHILS # (AUTO) 3.8 K/uL (1.8-8.9); PLATELET COUNT (AUTO) 243 K/uL (150-450); RED BLOOD CELL COUNT(AUTO) 5.46 MIL/uL (4.0-5.2); WHITE BLOOD COUNT (AUTO) 6.7 K/uL (4.3-11.0)
[2021-08-06 03:48] LABS: CALCIUM, SERUM 9.2 mg/dL (8.5-10.1); CREATININE 0.8 mg/dL (0.6-1.3); POTASSIUM 4.3 mmol/L (3.5-5.1)
--- NOTE | 2021-08-06 04:00 | NUR ---
PT SIGNED WAIVER FORM. RADIOLOGY MADE AWARE TO PROCEED W/ CT
[2021-08-06 04:02] LABS: ALBUMIN 3.7 g/dL (3.4-5.0); BILIRUBIN,DIRECT 0.1 mg/dL (0.0-0.2); BILIRUBIN,TOTAL 0.1 mg/dL (0.2-1.0); TOTAL PROTEIN, SERUM 7.7 g/dL (6.4-8.2)
--- NOTE | 2021-08-06 04:04 | NUR ---
PT WAS TAKEN FOR CT
--- NOTE | 2021-08-06 04:30 | NUR ---
CALLED [facility] TO HAVE IMAGE READ, RADIOLOGIST READING IT NOW
[2021-08-06] MEDS ORDERED: ACETAMINOPHEN 325 MG TABLET ONE (04:38)
--- NOTE | 2021-08-06 04:40 | NUR ---
PER ER MD PINA, ORDER FOR 650 MG TYLENOL PO. ORDER CARRIED OUT.
[2021-08-06] MEDS ORDERED: LIDOCAINE VISCOUS 2% UD 15 ML UDC MM ONE (05:00)
[2021-08-06] MEDS ORDERED: FAMOTIDINE (20 MG) 20 MG TABLET PO ONE (05:00)
[2021-08-06] MEDS ORDERED: oxyCODONE/APAP (5/325 MG) 1 UDTAB TABLET PO ONE (05:00)
[2021-08-06] MEDS ORDERED: MAG HYDROX/AL HYDROX/SIMETH 30 ML UDC PO ONE (05:00)
[2021-08-06] MEDS ORDERED: LIDOCAINE VISCOUS 2% UD 15 ML UDC ONE (05:04)
[2021-08-06] MEDS ORDERED: MAG HYDROX/AL HYDROX/SIMETH 30 ML UDC ONE (05:05)
[2021-08-06] MEDS ORDERED: FAMOTIDINE (20 MG) 20 MG TABLET ONE (05:07)
[2021-08-06] MEDS ORDERED: FAMO-131 PO (05:07)
[2021-08-06 05:21] VITALS: BP 127/67
--- NOTE | 2021-08-06 05:21 | NUR ---
Patient discharged to home in stable condition. Rx and Written and verbal after care instructions given. Patient verbalizes understanding of instruction.
[2021-08-06] MEDS ORDERED: TDAP [DIPH/PERTUSSIS/TET] 0.5 ML VIAL IM ONE (05:30)
[2021-08-06] MEDS ORDERED: LIDOCAINE 1%-EPI 1:100,000 20 ML VIAL TP ONE (05:30)
== END 2021-08-06 05:22 | disposition home or self-care (01) ==
LOC: ER 02:53
DX: K29.70 Gastritis, unspecified, without bleeding (principal); I10 Essential (primary) hypertension; K21.9 Gastro-esophageal reflux disease without esophagitis; F41.9 Anxiety disorder, unspecified; Z90.89 Acquired absence of other organs; Z88.0 Allergy status to penicillin; Z79.899 Other long term (current) drug therapy
CPT/HCPCS: 36415; 80048-TC; 80076-TC; 83690-TC; 85025-TC

== ENCOUNTER 2023-03-31 23:15 | Emergency (ER) | payer OTHER ==
[~2023-03-31] VITALS: Ht 175.3 cm; Wt 90.7 kg
[~2023-03-31 23:15] MED LIST changes: +FAMO-131 PO
--- NOTE | 2023-03-31 23:33 | NUR ---
JOSE J FROM HOME C/O CHILLS X1 HR. TRIAGE TEMP 98.0
[2023-04-01] MEDS ORDERED: ACETAMINOPHEN ES 500 MG TABLET PO ONE
[2023-04-01] MEDS ORDERED: ACETAMINOPHEN ES 500 MG TABLET ONE
--- NOTE | 2023-04-01 00:04 | NUR ---
COVID ANTIGEN AND FLU COLLECTED
[2023-04-01 00:09] VITALS: BP 127/82; TEMP 98
== END 2023-04-01 00:09 | disposition home or self-care (01) ==
LOC: ER 23:16
DX: R50.9 Fever, unspecified (principal); I10 Essential (primary) hypertension; K21.9 Gastro-esophageal reflux disease without esophagitis; F41.9 Anxiety disorder, unspecified; Z90.49 Acquired absence of other specified parts of digestive tract; Z79.899 Other long term (current) drug therapy; Z20.822 Contact with and (suspected) exposure to COVID-19; Z88.0 Allergy status to penicillin; Z88.1 Allergy status to other antibiotic agents
CPT/HCPCS: 99283; 87804 ×2; 87426; C9803

== ENCOUNTER 2023-09-29 15:20 | Emergency (ER) | payer BC, OTHER ==
[~2023-09-29] VITALS: Ht 172.7 cm; Wt 96.2 kg
[2023-09-29 15:43] VITALS: BP 122/66; TEMP 98.4; O2SAT 99
== END 2023-09-29 16:31 | disposition left against medical advice (07) ==
LOC: ER 15:53
DX: R55 Syncope and collapse (principal); J00 Acute nasopharyngitis [common cold]; Z53.21 Procedure and treatment not carried out due to patient leaving prior to being seen by health care provider

== ENCOUNTER 2024-05-25 16:23 | Emergency (ER) | payer BC, OTHER ==
[~2024-05-25] VITALS: Ht 172.7 cm; Wt 102.1 kg
[2024-05-25 16:40] VITALS: BP 125/81; TEMP 98.6; O2SAT 98
== END 2024-05-25 17:51 | disposition home or self-care (01) ==
LOC: ER 16:29
DX: T14.8XXA Other injury of unspecified body region, initial encounter (principal); Z53.21 Procedure and treatment not carried out due to patient leaving prior to being seen by health care provider; X58.XXXA Exposure to other specified factors, initial encounter; Y93.89 Activity, other specified; Y92.89 Other specified places as the place of occurrence of the external cause; Y99.8 Other external cause status

== ENCOUNTER 2024-12-30 19:20 | Emergency (ER) | payer BC, OTHER ==
[~2024-12-30] VITALS: Ht 172.7 cm; Wt 102.1 kg
[2024-12-30] MEDS: IV NS 0.9% 1,000 ML BAG IV ONE (19:50)
[2024-12-30 19:58] LABS: BASOPHILS # (AUTO) 0.1 K/uL (0.0-0.2); BASOPHILS % (AUTO) 0.8 % (0.0-2.0); EOSINOPHILS # (AUTO) 0.2 K/uL (0.0-0.7); HEMATOCRIT 42 % (33-45); HEMOGLOBIN 14.9 g/dL (11.5-14.8); LYMPHOCYTES # (AUTO) 2.8 K/uL (0.8-4.8); LYMPHOCYTES % (AUTO) 33.3 % (20.0-44.0); MEAN CORPUSCULAR HEMOGLOBIN 28 PG (26.0-33.0); MEAN CORPUSCULAR HGB CONC 36 g/dl (31.0-36.0); MEAN CORPUSCULAR VOLUME 80 fL (82-100); MONOCYTES # (AUTO) 0.5 K/uL (0.1-1.30); MONOCYTES % (AUTO) 5.4 % (2.0-12.0); NEUTROPHILS % (AUTO) 58.5 % (43.0-81.0); PLATELET COUNT (AUTO) 255 K/uL (150-450); RED BLOOD CELL COUNT(AUTO) 5.27 MIL/uL (4.0-5.2); WHITE BLOOD COUNT (AUTO) 8.5 K/uL (4.3-11.0)
[2024-12-30 20:12] LABS: CALCIUM, SERUM 9.3 mg/dL (8.5-10.1); CARBON DIOXIDE 24 mmol/L (21-32); CHLORIDE 107 mmol/L (98-107); CREATININE 0.8 mg/dL (0.6-1.3); GLUCOSE 148 mg/dL (74-106); POTASSIUM 3.6 mmol/L (3.5-5.1); SODIUM SERUM 142 mmol/L (136-145); UREA NITROGEN, BLOOD 14 mg/dL (7-18)
[2024-12-30 23:03] VITALS: BP 128/80; TEMP 98.6; O2SAT 99
== END 2024-12-30 23:04 | disposition home or self-care (01) ==
LOC: ER 19:28
DX: R55 Syncope and collapse (principal); R42 Dizziness and giddiness; I10 Essential (primary) hypertension; F41.9 Anxiety disorder, unspecified; R10.2 Pelvic and perineal pain; K58.9 Irritable bowel syndrome, unspecified; Z88.0 Allergy status to penicillin; Z88.5 Allergy status to narcotic agent; Z90.49 Acquired absence of other specified parts of digestive tract; Z79.899 Other long term (current) drug therapy
CPT/HCPCS: 99284; 96360; 93005; 85025; 80048; 36415; 84484 ×2; 84702; J7030